=== PATIENT | male | born 1970 | race Caucasian/White ===

== ENCOUNTER 2021-09-22 20:39 | Emergency (ER) | payer OTHER ==
[~2021-09-22] VITALS: Ht 195.6 cm; Wt 174.6 kg
[~2021-09-22 20:39] MED LIST: ALPR.5 PO; HYDACE10B PO; LEVSOD100 PO; NAPROXEN250 M2 PO; Norco 5-325 Ta1 EACH PO
== END 2021-09-22 22:39 | disposition home or self-care (01) ==
LOC: ER 20:39
DX: S81.811A Laceration without foreign body, right lower leg, initial encounter (principal); W22.8XXA Striking against or struck by other objects, initial encounter; Z79.899 Other long term (current) drug therapy
CPT/HCPCS: 12001; 99282-25

== ENCOUNTER 2024-06-03 18:51 | Emergency (ER) | payer OTHER ==
[~2024-06-03] VITALS: Ht 195.6 cm; Wt 163.3 kg
[2024-06-03 21:17] VITALS: BP 132/102
== END 2024-06-03 21:15 | disposition home or self-care (01) ==
LOC: ER 18:51
DX: M54.16 Radiculopathy, lumbar region (principal); Z79.899 Other long term (current) drug therapy
CPT/HCPCS: 99283

== ENCOUNTER 2024-12-17 00:23 | Emergency (ER) | payer OTHER ==
[~2024-12-17] VITALS: Ht 195.6 cm; Wt 176.9 kg
[2024-12-17 01:57] VITALS: BP 165/94
== END 2024-12-17 01:58 | disposition home or self-care (01) ==
LOC: ER 00:23
DX: G62.9 Polyneuropathy, unspecified (principal); R22.43 Localized swelling, mass and lump, lower limb, bilateral; K21.9 Gastro-esophageal reflux disease without esophagitis; Z79.890 Hormone replacement therapy; Z79.899 Other long term (current) drug therapy
CPT/HCPCS: 99283